=== PATIENT | female | born 1970 | race Caucasian/White ===

== ENCOUNTER 2017-11-01 11:53 | Emergency (ER) | payer MEDICAID ==
[2017-11-01] MEDS ORDERED: KETOROLAC TROMETHAMINE 60 MG/2 ML VIAL ONE (12:07)
== END 2017-11-01 13:09 | disposition home or self-care (01) ==
LOC: EDH 11:53
DX: S20.222A Contusion of left back wall of thorax, initial encounter (principal); S20.221A Contusion of right back wall of thorax, initial encounter; S30.0XXA Contusion of lower back and pelvis, initial encounter; I10 Essential (primary) hypertension; Z98.890 Other specified postprocedural states; Z72.0 Tobacco use; Y04.8XXA Assault by other bodily force, initial encounter; Y93.89 Activity, other specified; Y92.89 Other specified places as the place of occurrence of the external cause; Y99.8 Other external cause status
CPT/HCPCS: 72072; 72100; 96372; 99284; J1885

== ENCOUNTER 2018-06-30 14:15 | Emergency (ER) | payer MEDICAID, OTHER ==
[2018-06-30 15:17] LABS: EOSINOPHILS % (AUTO) 1.5 % (0.0-8.0); HEMATOCRIT 51.8 % (36-48); LYMPHOCYTES % (AUTO) 18.9 % (21.0-51.0); MEAN CORPUSCULAR HEMOGLOBIN 32.7 pg (27.0-33.0); MEAN CORPUSCULAR HGB CONC 33.3 g/dL (32.0-36.0); MEAN CORPUSCULAR VOLUME 98.3 fL (79-99); MONOCYTES % (AUTO) 4.8 % (3.0-13.0); NEUTROPHILS % (AUTO) 73.8 % (40.0-77.0); NUCLEATED RED BLOOD CELLS 0.1 % (0.0-0.19); PLATELET COUNT (AUTO) 212 K/uL (130-400); RED BLOOD CELL COUNT(AUTO) 5.27 MIL/uL (4.00-5.50); RED CELL DISTRIBUTION WIDTH 14.3 % (11.0-15.5); WHITE BLOOD COUNT (AUTO) 9.1 K/uL (4.8-10.8)
[2018-06-30 15:31] LABS: CREATININE 0.9 mg/dL (0.5-1.5); POTASSIUM 4.1 mmol/L (3.5-5.1)
[2018-06-30 15:32] LABS: INR 0.99 (0.85-1.15); PARTIAL THROMBOPLASTIN TIME 27.3 SEC (26.3-35.5); PROTHROMBIN TIME 10.4 SEC (9.6-11.6)
[2018-06-30 15:35] LABS: ALBUMIN 3.7 g/dL (3.5-5.0); TOTAL PROTEIN, SERUM 7.2 g/dL (6.0-8.3)
[2018-06-30 16:05] LABS: APPEARANCE,URINE CLEAR (CLEAR); BILIRUBIN,URINE MODERATE (NEGATIVE); COLOR,URINE YELLOW (YELLOW); GLUCOSE, URINE (UA) NEGATIVE (NEGATIVE); KETONES,URINE 15 mg/dL (NEGATIVE); LEUKOCYTE ESTERASE ,URINE NEGATIVE (NEGATIVE); NITRATE,URINE NEGATIVE (NEGATIVE); OCCULT BLOOD,URINE NEGATIVE (NEGATIVE); PROTEIN,URINE 30 (NEGATIVE); UROBILINOGEN,URINE 0.2 mg/dL (0.2-1.0)
[2018-06-30 16:12] LABS: AMORPHOUS SEDIMENT,UR Few /LPF (None Seen); BACTERIA,URINE Rare /HPF (None Seen); RBC,URINE 0-1 /HPF (0-1); SQUAMOUS EPITHELIAL CELL,UR Few /HPF (0-2); WBC,URINE 0-1 /HPF (0-1)
[2018-06-30 16:14] LABS: AMPHET/METH SCREEN,URINE NEGATIVE (NEGATIVE); BARBITURATE SCREEN, URINE NEGATIVE (NEGATIVE); BENZODIAZEPINES SCREEN,URINE NEGATIVE (NEGATIVE); CANNABINOID SCREEN,URINE POSITIVE (NEGATIVE); COCAINE SCREEN,URINE POSITIVE (NEGATIVE); OPIATE SCREEN,URINE NEGATIVE (NEGATIVE); PHENCYCLIDINE SCREEN,URINE NEGATIVE (NEGATIVE)
[2018-06-30] MEDS ORDERED: LABETALOL HCL 5 MG/ML 20ML VIAL IV ONE (17:18)
== END 2018-06-30 20:02 ==
LOC: EDH 14:15
DX: G45.9 Transient cerebral ischemic attack, unspecified (principal); I16.0 Hypertensive urgency; F12.10 Cannabis abuse, uncomplicated; F14.10 Cocaine abuse, uncomplicated; Z87.891 Personal history of nicotine dependence
CPT/HCPCS: 36415; 70450; 71045; 80053; 80305; 81001; 82550; 84484; 85025; 85610; 85730; 93005; 96374; 99285; J3490

== ENCOUNTER 2018-08-15 12:35 | Emergency (ER) | payer MEDICAID ==
[2018-08-15] MEDS ORDERED: CLONIDINE HCL 0.1 MG TABLET ONE (13:05)
[2018-08-15 13:17] LABS: CREATININE 0.9 mg/dL (0.5-1.5); POTASSIUM 4.5 mmol/L (3.5-5.1)
[2018-08-15 13:25] LABS: ALBUMIN 3.4 g/dL (3.5-5.0); BILIRUBIN,TOTAL 0.9 mg/dL (0.2-1.0); TOTAL PROTEIN, SERUM 8.3 g/dL (6.0-8.3)
[2018-08-15 13:27] LABS: INR 0.94 (0.85-1.15); PARTIAL THROMBOPLASTIN TIME 20.1 SEC (26.3-35.5); PROTHROMBIN TIME 9.9 SEC (9.6-11.6)
[2018-08-15] MEDS ORDERED: ACETAMINOPHEN 325 MG TAB ONE (14:03)
[2018-08-15 14:08] LABS: BASOPHILS % (AUTO) 0.5 % (0.0-5.0); EOSINOPHILS % (AUTO) 0.9 % (0.0-8.0); HEMATOCRIT 45.8 % (36-48); MEAN CORPUSCULAR HGB CONC 32.7 g/dL (32.0-36.0); MEAN CORPUSCULAR VOLUME 97.7 fL (79-99); MONOCYTES % (AUTO) 4.4 % (3.0-13.0); NEUTROPHILS % (AUTO) 78.2 % (40.0-77.0); NUCLEATED RED BLOOD CELLS 0.1 % (0.0-0.19); PLATELET COUNT (AUTO) 192 K/uL (130-400); RED BLOOD CELL COUNT(AUTO) 4.69 MIL/uL (4.00-5.50); RED CELL DISTRIBUTION WIDTH 15.2 % (11.0-15.5); WHITE BLOOD COUNT (AUTO) 12.7 K/uL (4.8-10.8)
== END 2018-08-15 15:45 | disposition home or self-care (01) ==
LOC: EDH 12:35
DX: R51 Headache (principal); R04.0 Epistaxis; I10 Essential (primary) hypertension; Z72.0 Tobacco use
CPT/HCPCS: 36415; 70450; 80053; 82550; 84484; 85025; 85610; 85730; 93005

== ENCOUNTER 2019-08-15 14:06 | Inpatient (IN) | payer MEDICAID, OTHER ==
[~2019-08-15] VITALS: Ht 157.5 cm; Wt 70.4 kg
[2019-08-15] MEDS ORDERED: LABETALOL 20 MG/4 ML DISP.SYRIN IV ONE (14:33)
[2019-08-15 15:02] LABS: BASOPHILS % (AUTO) 0.5 % (0.0-5.0); EOSINOPHILS % (AUTO) 0.2 % (0.0-8.0); HEMATOCRIT 45.4 % (36-48); LYMPHOCYTES % (AUTO) 5.3 % (21.0-51.0); MEAN CORPUSCULAR HEMOGLOBIN 34.5 pg (27.0-33.0); MEAN CORPUSCULAR HGB CONC 35.3 g/dL (32.0-36.0); MEAN CORPUSCULAR VOLUME 97.5 fL (79-99); MONOCYTES % (AUTO) 2.8 % (3.0-13.0); NEUTROPHILS % (AUTO) 91.2 % (40.0-77.0); PLATELET COUNT (AUTO) 104 K/uL (130-400); RED BLOOD CELL COUNT(AUTO) 4.65 MIL/uL (4.00-5.50); RED CELL DISTRIBUTION WIDTH 13.9 % (11.0-15.5); WHITE BLOOD COUNT (AUTO) 15.6 K/uL (4.8-10.8)
[2019-08-15 15:12] LABS: CREATININE 3.3 mg/dL (0.5-1.5); POTASSIUM 3.1 mmol/L (3.5-5.1)
[2019-08-15 15:27] LABS: APPEARANCE,URINE Cloudy (CLEAR); BILIRUBIN,URINE Negative (NEGATIVE); COLOR,URINE Yellow (YELLOW); GLUCOSE, URINE (UA) Negative (NEGATIVE); KETONES,URINE Negative (NEGATIVE); LEUKOCYTE ESTERASE ,URINE Negative (NEGATIVE); NITRATE,URINE Negative (NEGATIVE); OCCULT BLOOD,URINE Large (NEGATIVE); PROTEIN,URINE >=1000 mg/dL (NEGATIVE); UROBILINOGEN,URINE 0.2 mg/dL (0.2-1.0)
[2019-08-15 15:40] LABS: BACTERIA,URINE Moderate /HPF (None Seen); MUCUS,URINE Few LPF (None Seen)
[2019-08-15] MEDS ORDERED: ONDANSETRON HCL 4 MG/2 ML VIAL ONE (16:32)
[2019-08-15] MEDS ORDERED: HYDRALAZINE HCL 20 MG/ML VIAL ONE (16:32)
[2019-08-15] MEDS ORDERED: HYDRALAZINE HCL 25 MG TABLET PO SCH (17:30)
[2019-08-15] MEDS ORDERED: LEVOFLOXACIN 500 MG/D5W 100 ML 100 ML IV SCH (17:30)
[2019-08-15] MEDS: SODIUM CHLORIDE 0.9% 1000ML 1,000 ML IV SCH (17:45)
[2019-08-15] MEDS ORDERED: METOPROLOL TARTRATE 1 MG/ML 5ML VIAL IV PRN (17:45)
[2019-08-15] MEDS ORDERED: MORPHINE SULFATE 2 MG/ML 1ML SYG IVP PRN (17:45)
[2019-08-15] MEDS ORDERED: POTASSIUM CHLORIDE 20 MEQ ERTAB PO SCH (17:45)
[2019-08-15] MEDS: HEPARIN SODIUM 5000UNIT/ML 1ML VIAL SQ SCH (18:15)
[2019-08-15] MEDS ORDERED: POTASSIUM CHLORIDE 20 MEQ ERTAB PO ONE (18:30)
[2019-08-15] MEDS ORDERED: HYDRALAZINE HCL 25 MG TABLET ONE (18:30)
[2019-08-15] MEDS ORDERED: CEFTRIAXONE SODIUM 1 GM ONE (18:31)
[2019-08-15] MEDS ORDERED: SODIUM CHLORIDE 0.9% 1000ML 1,000 ML IV ONE (18:31)
[2019-08-15] MEDS ORDERED: SODIUM CHLORIDE 0.9% 50 ML IV ONE (18:32)
[2019-08-15] MEDS ORDERED: LEVOFLOXACIN 500 MG/D5W 100 ML 100 ML ONE (19:48)
[2019-08-15] MEDS: CEFTRIAXONE SODIUM 1 GM IVP SCH (20:00)
[2019-08-15] MEDS ORDERED: METOPROLOL TARTRATE 50 MG TAB PO SCH (21:00)
[2019-08-15] MEDS ORDERED: HEPARIN SODIUM 5000UNIT/ML 1ML VIAL SQ SCH (21:00)
[2019-08-15 21:06] VITALS: BP 199/128
[2019-08-15] MEDS: HYDRALAZINE HCL 25 MG TABLET PO SCH (22:21)
[2019-08-15] MEDS: HYDRALAZINE HCL 20 MG/ML VIAL IV PRN (22:42)
[2019-08-15] MEDS: ACETAMINOPHEN 325 MG TAB PO PRN (22:59)
[2019-08-16] VITALS (12 sets, daily range): BP systolic 114–198; BP diastolic 75–122
[2019-08-16] MEDS ORDERED: CLONIDINE HCL 0.1 MG TABLET PO PRN (00:15)
--- NOTE | 2019-08-16 00:15 | NUR ---
Princess Lopez loft worker head notified of elevated bp clonidine ordered
[2019-08-16] MEDS: ONDANSETRON HCL 4 MG/2 ML VIAL IV PRN ×4 (01:26→22:04)
--- NOTE | 2019-08-16 02:12 | NUR ---
bp 1191/117 Princess Lopez BOILER ENGINEER was notified, lopressor iv ordered, pt responsive with complaint of headache.
[2019-08-16] MEDS ORDERED: METOPROLOL TARTRATE 1 MG/ML 5ML VIAL IV PRN (02:15)
[2019-08-16 04:28] LABS: BASOPHILS % (AUTO) 0.6 % (0.0-5.0); HEMATOCRIT 37.3 % (36-48); LYMPHOCYTES % (AUTO) 11.1 % (21.0-51.0); MEAN CORPUSCULAR HEMOGLOBIN 33.9 pg (27.0-33.0); MEAN CORPUSCULAR HGB CONC 34.8 g/dL (32.0-36.0); MEAN CORPUSCULAR VOLUME 97.3 fL (79-99); MONOCYTES % (AUTO) 4.6 % (3.0-13.0); NEUTROPHILS % (AUTO) 82.7 % (40.0-77.0); PLATELET COUNT (AUTO) 105 K/uL (130-400); RED BLOOD CELL COUNT(AUTO) 3.83 MIL/uL (4.00-5.50); RED CELL DISTRIBUTION WIDTH 14.2 % (11.0-15.5); WHITE BLOOD COUNT (AUTO) 12.8 K/uL (4.8-10.8)
[2019-08-16] MEDS: HYDRALAZINE HCL 20 MG/ML VIAL IV PRN ×2 (04:46→11:44)
[2019-08-16 04:59] LABS: ALBUMIN 2.9 g/dL (3.5-5.0); BILIRUBIN,TOTAL 0.6 mg/dL (0.2-1.0); CREATININE 4.2 mg/dL (0.5-1.5); MAGNESIUM 2.2 mg/dL (1.80-2.40); PHOSPHORUS 4.4 mg/dL (2.5-4.9); TOTAL PROTEIN, SERUM 6.6 g/dL (6.0-8.3)
[2019-08-16 05:12] LABS: POTASSIUM 2.8 mmol/L (3.5-5.1)
[2019-08-16] MEDS ORDERED: POTASSIUM CHLORIDE 10% ELIXIR 20 MEQ/15 ML UDCUP PO PRN (06:00)
[2019-08-16] MEDS: POTASSIUM CHLORIDE 20MEQ/100ML 100 ML IV PRN (06:57)
[2019-08-16] MEDS: LIDOCAINE HCL-MPF 1% 2ML VIAL IV PRN (06:57)
[2019-08-16] MEDS: FOLIC ACID/VITAMIN B COMP W-C 1 MG CAP/TAB PO SCH (08:18)
[2019-08-16] MEDS: POTASSIUM CHLORIDE 20 MEQ ERTAB PO PRN (08:18)
[2019-08-16] MEDS: FAMOTIDINE 20MG TAB 20 MG TAB PO SCH (08:18)
[2019-08-16] MEDS: HYDRALAZINE HCL 25 MG TABLET PO SCH ×4 (08:18→20:16)
[2019-08-16] MEDS: HEPARIN SODIUM 5000UNIT/ML 1ML VIAL SQ SCH (08:21)
[2019-08-16] MEDS ORDERED: CHLORDIAZEPOXIDE HCL 25 MG CAP PO PRN (08:30)
[2019-08-16] MEDS ORDERED: ONDANSETRON HCL 4 MG/2 ML VIAL IV PRN (08:30)
[2019-08-16] MEDS ORDERED: PHARMACY COMMUNICATION MISC PRN (08:30)
[2019-08-16] MEDS ORDERED: THIAMINE HCL 100 MG/ML 2ML VIAL IM SCH (09:00)
[2019-08-16 09:18] LABS: AMPHET/METH SCREEN,URINE NEGATIVE (NEGATIVE); BARBITURATE SCREEN, URINE NEGATIVE (NEGATIVE); BENZODIAZEPINES SCREEN,URINE NEGATIVE (NEGATIVE); CANNABINOID SCREEN,URINE POSITIVE (NEGATIVE); COCAINE SCREEN,URINE NEGATIVE (NEGATIVE); OPIATE SCREEN,URINE NEGATIVE (NEGATIVE); PHENCYCLIDINE SCREEN,URINE NEGATIVE (NEGATIVE)
[2019-08-16] MEDS ORDERED: LABETALOL HCL 200 MG TABLET ONE (11:36)
[2019-08-16] MEDS: NICOTINE 21 MG/ 24 HR PATCH TD SCH (11:39)
[2019-08-16] MEDS: FOLIC ACID 1 MG TABLET PO SCH (11:40)
[2019-08-16] MEDS: MULTIVITAMIN TABLET PO SCH (11:40)
[2019-08-16] MEDS: LABETALOL HCL 200 MG TABLET PO SCH ×2 (11:45→20:15)
[2019-08-16] MEDS: THIAMINE HCL 100 MG/ML 2ML VIAL IVP SCH (12:26)
--- NOTE | 2019-08-16 13:00 | NUR ---
DR. SOLANO IN ROOM SPEAKING WITH PT. RE:PLAN OF CARE. QUESTIONS ANSWERED BY DR. SOLANO.
[2019-08-16] MEDS: SODIUM CHLORIDE 0.9% 1000ML 1,000 ML IV SCH (13:34)
[2019-08-16] MEDS ORDERED: LABETALOL HCL 200 MG TABLET PO SCH (14:00)
[2019-08-16] MEDS: ACETAMINOPHEN 325 MG TAB PO PRN (16:15)
--- NOTE | 2019-08-16 16:39 | NUR ---
DC PLAN VISITED WITH PATIENT. PATIENT LIVES WITH 2 DAUGHTERS AND GRANDCHILD. PATIENT HAS NO SERVICES DOES NOT WANT A PROVIDER. PATIENT HAS A [employer] AND WORKING ON PRIOR TO ADMISSION. PATIENT FEELS SAFE TO RETURN HOME. Addendum: 08/16/19 at 1641 by TJ KOWALSKI RN CM Amended: Links added. Addendum: 08/16/19 at 1712 by TJ KOWALSKI RN CM WRONG PATIENT
--- NOTE | 2019-08-16 17:13 | NUR ---
BRANDI PLAN PATIENT IN BATHROOM. PENDING IA. Addendum: 08/16/19 at 1715 by TJ KOWALSKI RN CM Amended: Links added.
[2019-08-16] MEDS ORDERED: SODIUM CHLORIDE 0.9% 10 ML VIAL ONE (20:02)
[2019-08-16] MEDS: CEFTRIAXONE SODIUM 1 GM IVP SCH (20:14)
[2019-08-16] MEDS: ACETAMINOPHEN-CODEINE 300/30MG TAB PO PRN (22:05)
[2019-08-17] VITALS (8 sets, daily range): BP systolic 125–185; BP diastolic 69–115
[2019-08-17] MEDS: LABETALOL HCL 200 MG TABLET PO SCH ×3 (03:20→20:33)
[2019-08-17 03:59] LABS: BASOPHILS % (AUTO) 0.7 % (0.0-5.0); EOSINOPHILS % (AUTO) 1.3 % (0.0-8.0); HEMATOCRIT 33.5 % (36-48); LYMPHOCYTES % (AUTO) 16.4 % (21.0-51.0); MEAN CORPUSCULAR HEMOGLOBIN 34.9 pg (27.0-33.0); MEAN CORPUSCULAR HGB CONC 34.9 g/dL (32.0-36.0); MEAN CORPUSCULAR VOLUME 99.9 fL (79-99); MONOCYTES % (AUTO) 6.2 % (3.0-13.0); NEUTROPHILS % (AUTO) 75.4 % (40.0-77.0); PLATELET COUNT (AUTO) 87 K/uL (130-400); RED BLOOD CELL COUNT(AUTO) 3.35 MIL/uL (4.00-5.50); RED CELL DISTRIBUTION WIDTH 14.7 % (11.0-15.5); WHITE BLOOD COUNT (AUTO) 9.4 K/uL (4.8-10.8)
[2019-08-17 04:28] LABS: ALBUMIN 2.8 g/dL (3.5-5.0); BILIRUBIN,TOTAL 0.5 mg/dL (0.2-1.0); CREATININE 4.6 mg/dL (0.5-1.5); POTASSIUM 3.6 mmol/L (3.5-5.1); TOTAL PROTEIN, SERUM 6.2 g/dL (6.0-8.3)
[2019-08-17] MEDS ORDERED: THIAMINE HCL 100 MG/ML 2ML VIAL IVP SCH (09:00)
[2019-08-17] MEDS: HEPARIN SODIUM 5000UNIT/ML 1ML VIAL SQ SCH (09:00)
[2019-08-17] MEDS ORDERED: AMLODIPINE BESYLATE 5 MG TAB PO SCH (09:00)
--- NOTE | 2019-08-17 10:00 | NUR ---
DCP CM met with pt discussed dc plans. Pt is independent prior to admission, lives at home alone, daughter lives close by. Denies any equipments/services. Feels safe to go back home, still drives, daughter able to assist with transportation and needs as necessary. DC plan to home once stable. CM to cont to follow up. Addendum: 08/17/19 at 1357 by ADRIÁN MOSELEY LVN CM Amended: Links added.
[2019-08-17] MEDS: THIAMINE HCL 100 MG/ML 2ML VIAL IVP SCH (10:16)
[2019-08-17] MEDS: FOLIC ACID 1 MG TABLET PO SCH (10:16)
[2019-08-17] MEDS: NICOTINE 21 MG/ 24 HR PATCH TD SCH (10:17)
[2019-08-17] MEDS: MULTIVITAMIN TABLET PO SCH (10:17)
[2019-08-17] MEDS: FOLIC ACID/VITAMIN B COMP W-C 1 MG CAP/TAB PO SCH (10:17)
[2019-08-17] MEDS: FAMOTIDINE 20MG TAB 20 MG TAB PO SCH (10:17)
[2019-08-17] MEDS: HYDRALAZINE HCL 25 MG TABLET PO SCH (10:20)
[2019-08-17] MEDS: AMLODIPINE BESYLATE 5 MG TAB PO SCH ×2 (10:30→20:30)
[2019-08-17] MEDS ORDERED: AMLO5TAB4 PO (10:33)
[2019-08-17] MEDS ORDERED: Folic Acid/Vitamin B Comp W-C PO (10:33)
[2019-08-17] MEDS ORDERED: DOCUSATE SODIUM 100 MG CAP PO SCH (12:30)
[2019-08-17] MEDS: POLYETHYLENE GLYCOL 3350 17 GM POWD.PACK PO SCH (13:25)
[2019-08-17] MEDS ORDERED: LEVOFLOXACIN 250 MG/D5W 50ML 50 ML IV SCH (18:00)
--- NOTE | 2019-08-17 20:00 | NUR ---
PM NOTE PATIENT RESTING IN BED, STATES FEELING NAUSEATED WITH A HEADACHE. NO IV ON PATIENT. PATIENT GETTING UP TO SHOWER. FAMLIY AT BEDSIDE. PATIENT ALERT & ORIENTED X3. UPON CALLING TELEMETRY, [employer] HARVESTING SUPERVISOR STATED PATIENT WAS NOT ON TELEMETRY. THIS HAD NOT BEEN REPORTED DURING CHANGE OF SHIFT REPORT. UPON ASKING PATIENT, SHE STATED THE NURSE HAD TOOK OFF THE TELEMETRY DUE TO DOCTOR'S ORDERS. PATIENT UNSURE OF REASON. WILL CHECK NURSES AND PHYSICIANS NOTES TO VERIFY REASON OF WHY TELEMETRY WAS DISCONTINUED. NO ORDERS SEEN CURRENTLY OF DISCONTINUATION. IV ATTEMPTED BY SEVERAL NURSING STAFF WITHOUT SUCCESS. WILL RETRY AGAIN LATER, WILL LET PATIENT REST FOR NOW. CALL LIGHT WITHIN REACH. INSTRUCTED TO CALL FOR ASSISTANCE IF NEEDED, VERBALIZED UNDERSTANDING.
[2019-08-17] MEDS: ACETAMINOPHEN 325 MG TAB PO PRN (20:31)
[2019-08-18] MEDS ORDERED: PROMETHAZINE HCL 25 MG/ML 1ML AMPULE IM SCH (01:15)
--- NOTE | 2019-08-18 02:00 | NUR ---
TELEMETRY UPON READING NOTES FROM YESTERDAY, NO REASON FOUND TO WHY TELEMETRY DISCONTINUED. WHILE SPEAKING TO GASTROENTEROLOGY NURSE, SHE MENTIONED THEY HAD THE PATIENT DISCHARGED. RE-VERIFICATION OF ORDERS AND NOTES WERE DONE TO DETERMINE IF THERE HAD BEEN A REASON TO DISCONTINUE TELEMETRY THAT HAD NOT BEEN DISCUSSED DURING REPORT. DECIDED TO PLACE TELEMETRY BACK ON PATIENT SINCE NO ORDERS OR NOTES INDICATED OTHERWISE. ONCE BACK ON TELEMETRY, RHYTHM WAS SINUS RHYTHM AT 80. WILL CONTINUE MONITORING.
[2019-08-18 04:10] VITALS: BP 168/99
[2019-08-18] MEDS: CEFTRIAXONE SODIUM 1 GM IVP SCH (04:49)
[2019-08-18] MEDS: ONDANSETRON HCL 4 MG/2 ML VIAL IV PRN (04:49)
[2019-08-18 05:03] LABS: BASOPHILS % (AUTO) 0.8 % (0.0-5.0); EOSINOPHILS % (AUTO) 1.4 % (0.0-8.0); HEMATOCRIT 31.7 % (36-48); LYMPHOCYTES % (AUTO) 17.6 % (21.0-51.0); MEAN CORPUSCULAR HEMOGLOBIN 34.6 pg (27.0-33.0); MEAN CORPUSCULAR HGB CONC 34.9 g/dL (32.0-36.0); MEAN CORPUSCULAR VOLUME 98.9 fL (79-99); MONOCYTES % (AUTO) 5.3 % (3.0-13.0); NEUTROPHILS % (AUTO) 74.9 % (40.0-77.0); PLATELET COUNT (AUTO) 100 K/uL (130-400); RED CELL DISTRIBUTION WIDTH 14.5 % (11.0-15.5); WHITE BLOOD COUNT (AUTO) 9.8 K/uL (4.8-10.8)
[2019-08-18 05:31] LABS: ALBUMIN 3.1 g/dL (3.5-5.0); BILIRUBIN,TOTAL 0.6 mg/dL (0.2-1.0); CREATININE 5.3 mg/dL (0.5-1.5); POTASSIUM 3.1 mmol/L (3.5-5.1); TOTAL PROTEIN, SERUM 6.5 g/dL (6.0-8.3)
[2019-08-18] MEDS ORDERED: PROMETHAZINE HCL 25 MG/ML 1ML AMPULE IM PRN (06:45)
[2019-08-18 07:57] VITALS: BP 174/97
[2019-08-18] MEDS ORDERED: POLYETHYLENE GLYCOL 3350 17 GM POWD.PACK PO SCH (09:00)
[2019-08-18] MEDS ORDERED: HYDRALAZINE HCL 25 MG TABLET PO SCH (09:00)
[2019-08-18] MEDS: THIAMINE HCL 100 MG/ML 2ML VIAL IVP SCH (09:35)
[2019-08-18] MEDS: MULTIVITAMIN TABLET PO SCH (09:36)
[2019-08-18] MEDS: FOLIC ACID 1 MG TABLET PO SCH (09:36)
[2019-08-18] MEDS: FAMOTIDINE 20MG TAB 20 MG TAB PO SCH (09:36)
[2019-08-18] MEDS: LABETALOL HCL 200 MG TABLET PO SCH ×2 (09:37→19:54)
[2019-08-18] MEDS: NICOTINE 21 MG/ 24 HR PATCH TD SCH (09:38)
[2019-08-18] MEDS: AMLODIPINE BESYLATE 5 MG TAB PO SCH ×2 (09:39→19:54)
[2019-08-18] MEDS: POLYETHYLENE GLYCOL 3350 17 GM POWD.PACK PO SCH (09:39)
[2019-08-18] MEDS: ACETAMINOPHEN-CODEINE 300/30MG TAB PO PRN (09:39)
[2019-08-18] MEDS: FOLIC ACID/VITAMIN B COMP W-C 1 MG CAP/TAB PO SCH (09:46)
[2019-08-18 11:48] VITALS: BP 161/96
[2019-08-18] MEDS: ONDANSETRON 4 MG TABLET PO PRN (13:15)
[2019-08-18] MEDS ORDERED: CLONAZEPAM 1 MG TABLET PO ONE (14:00)
[2019-08-18] MEDS ORDERED: POTASSIUM CHLORIDE 20 MEQ ERTAB PO SCH (14:15)
[2019-08-18] MEDS: SODIUM CHLORIDE 0.9% 1000ML 1,000 ML IV SCH (14:43)
[2019-08-18] MEDS: ONDANSETRON HCL 4 MG/2 ML VIAL IVP PRN (14:44)
[2019-08-18] MEDS: POTASSIUM CHLORIDE 20MEQ/100ML 100 ML IV PRN (14:46)
[2019-08-18] MEDS: LIDOCAINE HCL-MPF 1% 2ML VIAL IV PRN (14:46)
[2019-08-18 16:00] VITALS: BP 162/93
[2019-08-18 19:54] VITALS: BP 181/105
[2019-08-18] MEDS: HYDRALAZINE HCL 25 MG TABLET PO SCH (19:54)
[2019-08-18 21:17] LABS: CREATININE,SERUM FOR CRCL 5.3 mg/dL (0.6-1.3)
[2019-08-18 23:52] VITALS: BP 149/99
[2019-08-19] MEDS: ONDANSETRON HCL 4 MG/2 ML VIAL IVP PRN ×2 (01:53→08:39)
[2019-08-19] MEDS: ACETAMINOPHEN 325 MG TAB PO PRN (03:33)
[2019-08-19 04:00] VITALS: BP 160/100
[2019-08-19 04:25] LABS: MEAN CORPUSCULAR HEMOGLOBIN 35.2 pg (27.0-33.0); MEAN CORPUSCULAR VOLUME 100.5 fL (79-99); NUCLEATED RED BLOOD CELLS 0.1 % (0.0-0.19); PLATELET COUNT (AUTO) 90 K/uL (130-400); RED BLOOD CELL COUNT(AUTO) 3.08 MIL/uL (4.00-5.50); RED CELL DISTRIBUTION WIDTH 14.3 % (11.0-15.5); WHITE BLOOD COUNT (AUTO) 11.1 K/uL (4.8-10.8)
[2019-08-19 04:28] LABS: ALBUMIN 3.1 g/dL (3.5-5.0); BILIRUBIN,TOTAL 0.6 mg/dL (0.2-1.0); CREATININE 5.2 mg/dL (0.5-1.5); MAGNESIUM 2.3 mg/dL (1.80-2.40); POTASSIUM 3.2 mmol/L (3.5-5.1); TOTAL PROTEIN, SERUM 6.3 g/dL (6.0-8.3)
[2019-08-19 04:44] LABS: EOSINOPHILS % (MANUAL) 2 % (1-6); LYMPHOCYTES % (MANUAL) 11 % (22-44); MAN.DIFF COMMENT-IMPRESSION MANUAL DIFFERENTIAL; MONOCYTES % (MANUAL) 7 % (2-9); SEGMENTED NEUTROPHILS % 80 % (40-70)
[2019-08-19] MEDS: POTASSIUM CHLORIDE 20 MEQ ERTAB PO PRN (05:05)
[2019-08-19 07:09] LABS: HEPATITIS A ANTIBODY IGM Negative (Negative); HEPATITIS B CORE IGM Negative (Negative); HEPATITIS Bs ANTIGEN SCREEN P Negative (Negative)
[2019-08-19 07:15] VITALS: BP 161/87
[2019-08-19] MEDS: POLYETHYLENE GLYCOL 3350 17 GM POWD.PACK PO SCH (08:38)
[2019-08-19] MEDS: NICOTINE 21 MG/ 24 HR PATCH TD SCH (08:39)
[2019-08-19] MEDS: FAMOTIDINE 20MG TAB 20 MG TAB PO SCH (08:40)
[2019-08-19] MEDS: LABETALOL HCL 200 MG TABLET PO SCH ×2 (08:40→21:49)
[2019-08-19] MEDS: AMLODIPINE BESYLATE 5 MG TAB PO SCH ×2 (08:40→21:50)
[2019-08-19] MEDS: MULTIVITAMIN TABLET PO SCH (08:40)
[2019-08-19] MEDS: FOLIC ACID/VITAMIN B COMP W-C 1 MG CAP/TAB PO SCH (08:40)
[2019-08-19] MEDS: HYDRALAZINE HCL 25 MG TABLET PO SCH ×2 (08:41→21:49)
[2019-08-19] MEDS: SODIUM CHLORIDE 0.9% 1000ML 1,000 ML IV SCH (08:43)
[2019-08-19 11:25] VITALS: BP 123/76
[2019-08-19] MEDS: MINOXIDIL 2.5 MG TAB PO SCH ×2 (14:31→21:50)
[2019-08-19 15:18] VITALS: BP 163/86
[2019-08-19] MEDS: LORAZEPAM 2 MG/ML 1 ML VIAL IVP PRN (16:01)
--- NOTE | 2019-08-19 17:25 | NUR ---
MRI REPORT ABNORMAL MRI BRAIN REPORT CALLED IN TO DR BONILLA. SEE EMR FOR ORDERS.
[2019-08-19] MEDS ORDERED: ASPIRIN 81MG TAB.CHEW PO SCH (17:30)
--- NOTE | 2019-08-19 19:00 | NUR ---
Assumed care at 1900. Patient in no apparent distress, however patient appears to be a bit agitated and anxious. Will continue to monitor.
[2019-08-19 20:05] VITALS: BP 174/107
[2019-08-19] MEDS: ATORVASTATIN CALCIUM 20 MG TABLET PO SCH (21:50)
[2019-08-20] VITALS (7 sets, daily range): BP systolic 108–142; BP diastolic 64–92
[2019-08-20 04:16] LABS: HEMATOCRIT 28.4 % (36-48); MEAN CORPUSCULAR HEMOGLOBIN 34.4 pg (27.0-33.0); MEAN CORPUSCULAR HGB CONC 34.5 g/dL (32.0-36.0); MEAN CORPUSCULAR VOLUME 99.8 fL (79-99); PLATELET COUNT (AUTO) 117 K/uL (130-400); RED BLOOD CELL COUNT(AUTO) 2.85 MIL/uL (4.00-5.50); RED CELL DISTRIBUTION WIDTH 14.6 % (11.0-15.5); WHITE BLOOD COUNT (AUTO) 6.8 K/uL (4.8-10.8)
[2019-08-20 04:20] LABS: INR 0.95 (0.85-1.15); PARTIAL THROMBOPLASTIN TIME 25.2 SEC (26.3-35.5)
[2019-08-20 04:22] LABS: CREATININE 5.6 mg/dL (0.5-1.5); POTASSIUM 3.7 mmol/L (3.5-5.1)
[2019-08-20 04:36] LABS: BASOPHILS % (MANUAL) 1 % (0-2); EOSINOPHILS % (MANUAL) 1 % (1-6); LYMPHOCYTES % (MANUAL) 18 % (22-44); MONOCYTES % (MANUAL) 4 % (2-9); SEGMENTED NEUTROPHILS % 76 % (40-70)
[2019-08-20 04:37] LABS: MAN.DIFF COMMENT-IMPRESSION MANUAL DIFFERENTIAL
[2019-08-20] MEDS: MULTIVITAMIN TABLET PO SCH (10:11)
[2019-08-20] MEDS: MINOXIDIL 2.5 MG TAB PO SCH ×2 (10:11→21:12)
[2019-08-20] MEDS: FOLIC ACID/VITAMIN B COMP W-C 1 MG CAP/TAB PO SCH (10:11)
[2019-08-20] MEDS: LABETALOL HCL 200 MG TABLET PO SCH ×2 (10:11→21:11)
[2019-08-20] MEDS: AMLODIPINE BESYLATE 5 MG TAB PO SCH ×2 (10:12→21:12)
[2019-08-20] MEDS: FAMOTIDINE 20MG TAB 20 MG TAB PO SCH (10:12)
[2019-08-20] MEDS: HYDRALAZINE HCL 25 MG TABLET PO SCH ×2 (10:12→21:11)
[2019-08-20] MEDS: ASPIRIN 81MG TAB.CHEW PO SCH (10:12)
[2019-08-20] MEDS: NICOTINE 21 MG/ 24 HR PATCH TD SCH (10:13)
[2019-08-20] MEDS: POLYETHYLENE GLYCOL 3350 17 GM POWD.PACK PO SCH (10:18)
[2019-08-20] MEDS: LORAZEPAM 2 MG/ML 1 ML VIAL IVP PRN (11:25)
--- NOTE | 2019-08-20 12:10 | NUR ---
DYSPHAGIA EVAL COMPLETED. -S/S OF ASPIRATION. RECOMMEND REGULAR TEXTURE, THIN LIQUIDS; PILLS WHOLE WITH LIQUIDS. Addendum: 08/20/19 at 1211 by STELLA PICKETT, [facility] Amended: Links added.
--- NOTE | 2019-08-20 12:22 | NUR ---
RDSCREEN - LOS X 5 Pt admitted for headache, UTI, uncontrolled HTN, medical Hx of CKD IV, medical noncompliance. Pending MRI results. Pt tolerating Renal Non Dialysis, Heart Healthy diet order. Upon visit, Pt reports nausea and vomiting with medications. Pt was able to eat 75% breakfast and looking forward to lunch. Recommend to add Ensure QD, per pt request. Pt LBM 08/19/19. Pt monitored labs: BUN 47, Cr 5.6, GFR 9, Ca 8.3, Alb 3.1. RD to continue to monitor. Please notify RD as additional nutrition concerns arise. Thank you. Addendum: 08/20/19 at [address] Amended: Links added.
[2019-08-20] MEDS: ACETAMINOPHEN-CODEINE 300/30MG TAB PO PRN (15:11)
[2019-08-20] MEDS: ATORVASTATIN CALCIUM 20 MG TABLET PO SCH (21:12)
[2019-08-20] MEDS: ACETAMINOPHEN 325 MG TAB PO PRN (21:21)
[2019-08-21 04:06] VITALS: BP 123/74
[2019-08-21 04:37] LABS: HEMATOCRIT 30.3 % (36-48); MEAN CORPUSCULAR HEMOGLOBIN 35.3 pg (27.0-33.0); MEAN CORPUSCULAR VOLUME 100.9 fL (79-99); PLATELET COUNT (AUTO) 122 K/uL (130-400); RED BLOOD CELL COUNT(AUTO) 3.01 MIL/uL (4.00-5.50); RED CELL DISTRIBUTION WIDTH 14.4 % (11.0-15.5); WHITE BLOOD COUNT (AUTO) 7.2 K/uL (4.8-10.8)
[2019-08-21 05:02] LABS: HEMOGLOBIN A1C 4.7 % (4.0-6.0)
[2019-08-21 05:05] LABS: CARBON DIOXIDE 21 mmol/L (21-32); CHLORIDE 101 mmol/L (101-111); CHOLESTEROL 117 mg/dL (<200); CREATININE 5.5 mg/dL (0.5-1.5); GLOMERULAR FILTR. RATE CALC 9 mL/min (>60); GLUCOSE,RANDOM 91 mg/dL (70-105); HDL CHOLESTEROL 51 mg/dL (35-85); LDL DIRECT 53 mg/dL (0-99); PHOSPHORUS 5.9 mg/dL (2.5-4.9); POTASSIUM 3.8 mmol/L (3.5-5.1); SODIUM SERUM 136 mmol/L (136-145); TRIGLYCERIDES 100 mg/dL (30-200); UREA NITROGEN, BLOOD 43 mg/dL (7-18)
[2019-08-21 07:56] VITALS: BP 130/85
[2019-08-21] MEDS: POLYETHYLENE GLYCOL 3350 17 GM POWD.PACK PO SCH (09:00)
[2019-08-21] MEDS: AMLODIPINE BESYLATE 5 MG TAB PO SCH ×2 (09:10→20:18)
[2019-08-21] MEDS: HYDRALAZINE HCL 25 MG TABLET PO SCH ×2 (09:12→20:19)
[2019-08-21] MEDS: FOLIC ACID/VITAMIN B COMP W-C 1 MG CAP/TAB PO SCH (09:12)
[2019-08-21] MEDS: MINOXIDIL 2.5 MG TAB PO SCH ×2 (09:12→20:19)
[2019-08-21] MEDS: MULTIVITAMIN TABLET PO SCH (09:12)
[2019-08-21] MEDS: ASPIRIN 81MG TAB.CHEW PO SCH (09:12)
[2019-08-21] MEDS: LABETALOL HCL 200 MG TABLET PO SCH ×2 (09:13→20:17)
[2019-08-21] MEDS: NICOTINE 21 MG/ 24 HR PATCH TD SCH (09:13)
[2019-08-21] MEDS: FAMOTIDINE 20MG TAB 20 MG TAB PO SCH (09:14)
[2019-08-21] MEDS: ACETAMINOPHEN-CODEINE 300/30MG TAB PO PRN (09:20)
--- NOTE | 2019-08-21 10:47 | NUR ---
DC PLAN SPOKE TO PATIENT STILL UPSET. LET FIRE CLAIMS ADJUSTER KNOW WELL. PATIENT SIGNED POA YESTERDAY. [facility] HAS BEEN TRYING TO HELP HER BUT BEING DELAYED BY PATIENT. DC PLAN STILL TO DC HOME PENDING MRI. Addendum: 08/21/19 at 1050 by TJ KOWALSKI RN CM Amended: Links added.
[2019-08-21] MEDS: LORAZEPAM 2 MG/ML 1 ML VIAL IVP PRN (11:51)
[2019-08-21 11:58] VITALS: BP 107/69
[2019-08-21 15:33] VITALS: BP 122/73
[2019-08-21] MEDS ORDERED: HYDROXYZINE HCL 25 MG TABLET PO PRN (16:00)
--- NOTE | 2019-08-21 18:30 | NUR ---
TELEMETRY PT REFUSING BOWLING BALL PATCHER. EXPLAINED TO PT PURPOSE OF BOWLING BALL PATCHER. PT CONTINUED TO REFUSE BOWLING BALL PATCHER. REFUSAL FORM EXPLAINED TO PT. REFUSAL FORM BOWLING BALL PATCHER SIGNED BY PT.
[2019-08-21 19:22] VITALS: BP 125/84
[2019-08-21] MEDS: ATORVASTATIN CALCIUM 20 MG TABLET PO SCH (20:18)
[2019-08-21 23:34] VITALS: BP 109/68
[2019-08-22 03:39] VITALS: BP 123/75
[2019-08-22 07:55] VITALS: BP 135/81
[2019-08-22] MEDS: MULTIVITAMIN TABLET PO SCH (09:45)
[2019-08-22] MEDS: FAMOTIDINE 20MG TAB 20 MG TAB PO SCH (09:46)
[2019-08-22] MEDS: ASPIRIN 81MG TAB.CHEW PO SCH (09:46)
[2019-08-22] MEDS: MINOXIDIL 2.5 MG TAB PO SCH ×2 (09:46→22:15)
[2019-08-22] MEDS: LABETALOL HCL 200 MG TABLET PO SCH ×2 (09:47→22:14)
[2019-08-22] MEDS: POLYETHYLENE GLYCOL 3350 17 GM POWD.PACK PO SCH (09:47)
[2019-08-22] MEDS: HYDRALAZINE HCL 25 MG TABLET PO SCH ×2 (09:47→22:16)
[2019-08-22] MEDS: AMLODIPINE BESYLATE 5 MG TAB PO SCH ×2 (09:47→22:15)
[2019-08-22] MEDS: NICOTINE 21 MG/ 24 HR PATCH TD SCH (09:48)
[2019-08-22] MEDS: FOLIC ACID/VITAMIN B COMP W-C 1 MG CAP/TAB PO SCH (09:51)
[2019-08-22 11:24] VITALS: BP 99/65
[2019-08-22] MEDS: FLUOXETINE HCL 20 MG CAPSULE PO SCH (12:55)
[2019-08-22 15:25] VITALS: BP_SYST 105; BP_SYST 131; BP_DIAS 63; BP_DIAS 80
[2019-08-22 19:38] VITALS: BP 116/69
--- NOTE | 2019-08-22 22:00 | NUR ---
ASSESSMENT PT RESTING IN BED. CALLBELL REVIEWED AND WITHIN REACH. DENIES ANY CHEST PAIN OR S.O.B. ASSESSMENT COMPLETED, SEE FLOW SHEET. C/O BLURRY VISION. C/O H/A.
[2019-08-22] MEDS: ATORVASTATIN CALCIUM 20 MG TABLET PO SCH (22:14)
[2019-08-22 23:49] VITALS: BP 99/55
[2019-08-23] MEDS: ACETAMINOPHEN EXTRA STRENGTH 500 MG TABLET PO PRN ×2 (00:56→22:53)
[2019-08-23 03:25] LABS: HEMATOCRIT 29.2 % (36-48); MEAN CORPUSCULAR HEMOGLOBIN 34.7 pg (27.0-33.0); MEAN CORPUSCULAR HGB CONC 34.2 g/dL (32.0-36.0); MEAN CORPUSCULAR VOLUME 101.5 fL (79-99); PLATELET COUNT (AUTO) 180 K/uL (130-400); RED BLOOD CELL COUNT(AUTO) 2.88 MIL/uL (4.00-5.50); RED CELL DISTRIBUTION WIDTH 14.3 % (11.0-15.5); WHITE BLOOD COUNT (AUTO) 7.2 K/uL (4.8-10.8)
[2019-08-23 03:41] LABS: CREATININE 6.3 mg/dL (0.5-1.5); POTASSIUM 4.2 mmol/L (3.5-5.1)
[2019-08-23 04:04] VITALS: BP 109/68
[2019-08-23 08:01] VITALS: BP 132/89
[2019-08-23] MEDS ORDERED: FLUOXETINE HCL 20 MG CAPSULE PO SCH (09:00)
[2019-08-23] MEDS: ASPIRIN 81MG TAB.CHEW PO SCH (09:41)
[2019-08-23] MEDS: FOLIC ACID/VITAMIN B COMP W-C 1 MG CAP/TAB PO SCH (09:41)
[2019-08-23] MEDS: AMLODIPINE BESYLATE 5 MG TAB PO SCH ×2 (09:41→20:44)
[2019-08-23] MEDS: MINOXIDIL 2.5 MG TAB PO SCH ×2 (09:42→20:44)
[2019-08-23] MEDS: FLUOXETINE HCL 20 MG CAPSULE PO SCH (09:42)
[2019-08-23] MEDS: MULTIVITAMIN TABLET PO SCH (09:42)
[2019-08-23] MEDS: FAMOTIDINE 20MG TAB 20 MG TAB PO SCH (09:42)
[2019-08-23] MEDS: HYDRALAZINE HCL 25 MG TABLET PO SCH ×2 (09:42→20:44)
[2019-08-23] MEDS: NICOTINE 21 MG/ 24 HR PATCH TD SCH (09:43)
[2019-08-23] MEDS: LABETALOL HCL 200 MG TABLET PO SCH ×2 (09:43→20:45)
[2019-08-23] MEDS: POLYETHYLENE GLYCOL 3350 17 GM POWD.PACK PO SCH (09:43)
[2019-08-23 11:44] VITALS: BP 129/82
[2019-08-23 15:30] VITALS: BP 134/80
[2019-08-23] MEDS: ACETAMINOPHEN 325 MG TAB PO PRN (18:39)
[2019-08-23 19:00] VITALS: BP 117/67
--- NOTE | 2019-08-23 19:15 | NUR ---
ASSESSMENT PT RESTING IN BED. CALLBELL REVIEWED AND WITHIN REACH. DENIES ANY CHEST PAIN OR S.O.B. ASSESSMENT COMPLETED, SEE FLOW SHEET. PT C/O BLURRY VISION AND HEADACHES. SEE KEL FOR TYLENOL GIVEN.
[2019-08-23] MEDS: ATORVASTATIN CALCIUM 20 MG TABLET PO SCH (20:44)
[2019-08-23] MEDS: ONDANSETRON 4 MG TABLET PO PRN (20:44)
[2019-08-23 23:00] VITALS: BP 106/67
--- NOTE | 2019-08-24 | NUR ---
VISION DAUGHTER AT BEDSIDE. DAUGHTER STATES "MY MOM CAN'T SEE". PT STATES "I FEEL WEIRD". PT ENCOURAGED TO EXPRESS FEELINGS. PT STATED "I JUST FEEL WEIRD." SEE FOR BLOOD SUGAR. KATARINA. SEE NEURO ASSESSMENT. WILL CONTINUE TO MONITOR
--- NOTE | 2019-08-24 02:00 | NUR ---
UP-DATE SEE NEURO ASSESSMENT, PERRLA. WILL CONTINUE TO MONITOR. PT RESTING INTERMITTENTLY.
[2019-08-24 03:00] VITALS: BP 100/58
[2019-08-24] MEDS: ACETAMINOPHEN EXTRA STRENGTH 500 MG TABLET PO PRN (07:09)
--- NOTE | 2019-08-24 07:30 | NUR ---
ASSESSMENT ENCOUNTERED PT A&OX3, CALM COOPERATIVE AND DOES NOT APPEAR TO BE IN ANY DISTRESS NOR ANY NEURO DEFICITS PRESENT. PT DENIES PAIN, SOB, NAUSEA. STERNAL AND CHEST TUBE INCISION SITES DRY AND INTACT. INCENTIVE SPIROMETRY AVERAGING 750ML PER ATTEMPT. ENCOURAGED PT TO INCREASE FREQUENCY TO EVERY 1/2 HOUR AND THAT GOAL FOR PATIENT IS TO REACH 1500ML BY DISCHARGE. PT IS AMBULATORY, GAIT SLOW AND UNSTEADY WITH ASSIST. CALL LIGHT WITHIN REACH, FAMILY AT BEDSIDE. Addendum: 08/26/19 at 1826 by ALONDRA MOSELEY RN RN ERROR, INCORRECT PATIENT
[2019-08-24 07:43] VITALS: BP 120/70
--- NOTE | 2019-08-24 08:00 | NUR ---
ASSESSMENT ENCOUNTERED PT ASLEEP BUT AROUSEABLE, A&OX3, FLAT AFFECT, CALM COOPERATIVE AND DOES NOT APPEAR TO BE IN ANY DISTRESS. PT DENIES PAIN, SOB, NAUSEA, DIZZINESS BUT DOES C/O INTERMITTENT IMPAIRED VISION AND DEPTH PERCEPTION. PT IS AMBULATORY, GAIT SLOW BUT STEADY WITH STAND BY ASSIST. PT IS ABLE TO TOLERATE FOODS, FLUIDS AND MEDICATION WITH NO THROAT CLEARING OR COUGH. CALL LIGHT WITHIN REACH, FAMILY AT BEDSIDE.
[2019-08-24] MEDS: FAMOTIDINE 20MG TAB 20 MG TAB PO SCH (10:29)
[2019-08-24] MEDS: NICOTINE 21 MG/ 24 HR PATCH TD SCH (10:29)
[2019-08-24] MEDS: MINOXIDIL 2.5 MG TAB PO SCH (10:29)
[2019-08-24] MEDS: FLUOXETINE HCL 20 MG CAPSULE PO SCH (10:30)
[2019-08-24] MEDS: ASPIRIN 81MG TAB.CHEW PO SCH (10:30)
[2019-08-24] MEDS: POLYETHYLENE GLYCOL 3350 17 GM POWD.PACK PO SCH (10:30)
[2019-08-24] MEDS: FOLIC ACID/VITAMIN B COMP W-C 1 MG CAP/TAB PO SCH (10:30)
[2019-08-24] MEDS: HYDRALAZINE HCL 25 MG TABLET PO SCH (10:30)
[2019-08-24] MEDS: AMLODIPINE BESYLATE 5 MG TAB PO SCH (10:34)
[2019-08-24] MEDS: MULTIVITAMIN TABLET PO SCH (10:34)
[2019-08-24] MEDS: LABETALOL HCL 200 MG TABLET PO SCH (10:34)
[2019-08-24 11:22] VITALS: BP 124/81
[2019-08-24] MEDS ORDERED: FLUO-126 PO (13:36)
[2019-08-24] MEDS ORDERED: ATOR20TA65 PO (13:36)
[2019-08-24] MEDS ORDERED: LABE200T5 PO (13:36)
[2019-08-24] MEDS ORDERED: HYDR-3421 PO (13:36)
[2019-08-24] MEDS ORDERED: HYDR25 PO (13:36)
[2019-08-24] MEDS ORDERED: AEC81 PO (13:38)
[2019-08-24] MEDS ORDERED: CLOP75TA32 PO (13:38)
--- NOTE | 2019-08-24 16:00 | NUR ---
DISCHARGE INSTRUCTIONS GIVEN, PIV REMOVED AND INTACT, DISCHARGED HOME TO FAMILY VEHICLE VIA WHEELCHAIR.
== END 2019-08-24 15:49 | disposition home or self-care (01) | DRG 682 ==
LOC: EDH 14:06 → EDHIP 14:07 → 2AH 20:38
PROVIDERS: ADMIT Family Medicine; ATTEND Family Medicine
DX: N17.9 Acute kidney failure, unspecified (principal); I63.9 Cerebral infarction, unspecified; N39.0 Urinary tract infection, site not specified; I16.1 Hypertensive emergency; E87.1 Hypo-osmolality and hyponatremia; I13.11 Hypertensive heart and chronic kidney disease without heart failure, with stage 5 chronic kidney disease, or end stage renal disease; E87.6 Hypokalemia; D69.6 Thrombocytopenia, unspecified; R79.89 Other specified abnormal findings of blood chemistry; F17.200 Nicotine dependence, unspecified, uncomplicated; G43.909 Migraine, unspecified, not intractable, without status migrainosus; I73.9 Peripheral vascular disease, unspecified; F12.10 Cannabis abuse, uncomplicated; R80.9 Proteinuria, unspecified; D64.9 Anemia, unspecified; E78.5 Hyperlipidemia, unspecified; N18.5 Chronic kidney disease, stage 5; F32.9 Major depressive disorder, single episode, unspecified; F41.1 Generalized anxiety disorder; H54.7 Unspecified visual loss; Z79.899 Other long term (current) drug therapy; Z91.19 Patient's noncompliance with other medical treatment and regimen; Z91.14 Patient's other noncompliance with medication regimen; Z86.73 Personal history of transient ischemic attack (TIA), and cerebral infarction without residual deficits
CPT/HCPCS: 36415; 70450; 70544; 70551; 71046; 76770; 80048; 80053; 80061; 80074; 80305; 81001; 82575; 82948; 83036; 83735; 84100; 84132; 84145; 84156; 84166; 84484; 84550; 85025; 85027; 85610; 85730; 86038; 86160; 86215; 86235; 86255; 86325; 86334; 86611; 86622; 86638; 86701; 87040; 87088; 87390; 92610; 93005; 93306; 93880; 99291; G0378; J0360; J0696; J1644; J1956; J2060; J2405; J3411; J3480; J3490; J7030; Q0162

== ENCOUNTER 2022-08-18 13:34 | Emergency (ER) | payer MEDICAID ==
[~2022-08-18] VITALS: Ht 157.5 cm; Wt 64.0 kg
[~2022-08-18 13:34] MED LIST: AEC81 PO; AMLO5TAB4 PO; ATOR20TA65 PO; CLOP75TA32 PO; FLUO20CA36 PO; Folic Acid/Vitamin B Comp W-C PO; HYDR-3421 PO; HYDR25 PO; LABE200T7 PO
[2022-08-18] MEDS ORDERED: PHENYLEPHRINE HCL 0.5% 15 ML NASAL SPRAY NASAL ONE (14:11)
[2022-08-18] MEDS ORDERED: NEOMY SULF/BACITRA/POLYMYXIN B 1 EACH PACKET TP ONE (14:19)
[2022-08-18 14:44] LABS: BASOPHILS % (AUTO) 0.6 % (0.0-5.0); EOSINOPHILS % (AUTO) 1.4 % (0.0-8.0); HEMATOCRIT 37.4 % (36-48); MEAN CORPUSCULAR HEMOGLOBIN 32.3 pg (27.0-33.0); MEAN CORPUSCULAR HGB CONC 31.8 g/dL (32.0-36.0); MEAN CORPUSCULAR VOLUME 101.6 fL (79-99); MONOCYTES % (AUTO) 4.7 % (3.0-13.0); NEUTROPHILS % (AUTO) 81.9 % (40.0-77.0); PLATELET COUNT (AUTO) 112 K/uL (130-400); RED BLOOD CELL COUNT(AUTO) 3.68 MIL/uL (4.00-5.50); RED CELL DISTRIBUTION WIDTH 13.4 % (11.0-15.5); WHITE BLOOD COUNT (AUTO) 12.2 K/uL (4.8-10.8)
[2022-08-18 14:56] LABS: CREATININE 1.5 mg/dL (0.5-1.5); POTASSIUM 4.3 mmol/L (3.5-5.1)
[2022-08-18 15:01] LABS: ALBUMIN 3.4 g/dL (3.5-5.0); TOTAL PROTEIN, SERUM 6.8 g/dL (6.0-8.3)
[2022-08-18 15:30] VITALS: BP 154/98
== END 2022-08-18 15:50 | disposition home or self-care (01) ==
LOC: EDH 13:34
DX: R04.0 Epistaxis (principal); I10 Essential (primary) hypertension; Z90.49 Acquired absence of other specified parts of digestive tract; Z98.890 Other specified postprocedural states; Z79.899 Other long term (current) drug therapy; Z79.82 Long term (current) use of aspirin
CPT/HCPCS: 30901; 36415; 80053; 85025

== ENCOUNTER → 2022-11-19 | Outpatient (CLI) | payer MEDICAID | END | disposition home or self-care (01) | LOC: RAH 12:12 | PROVIDERS: ATTEND Psychiatry & Neurology Vascular Neurology | DX: I35.1 Nonrheumatic aortic (valve) insufficiency (principal); I11.9 Hypertensive heart disease without heart failure; Z86.73 Personal history of transient ischemic attack (TIA), and cerebral infarction without residual deficits | CPT/HCPCS: 93306; 96374 ==

== ENCOUNTER → 2022-12-15 | Outpatient (CLI) | payer MEDICAID | END | disposition home or self-care (01) | LOC: RAH 12:32 | PROVIDERS: ATTEND Psychiatry & Neurology Vascular Neurology | DX: G93.89 Other specified disorders of brain (principal); R41.3 Other amnesia; Z86.73 Personal history of transient ischemic attack (TIA), and cerebral infarction without residual deficits | CPT/HCPCS: 70551 ==

== ENCOUNTER 2023-01-27 19:59 | Emergency (ER) | payer MEDICAID ==
[~2023-01-27] VITALS: Ht 157.5 cm; Wt 63.0 kg
[2023-01-27 21:05] VITALS: BP 144/90
[2023-01-27 22:40] LABS: BASOPHILS % (AUTO) 0.7 % (0.0-5.0); EOSINOPHILS % (AUTO) 2.2 % (0.0-8.0); HEMATOCRIT 38.6 % (36-48); LYMPHOCYTES % (AUTO) 22.9 % (21.0-51.0); MEAN CORPUSCULAR HEMOGLOBIN 32.1 pg (27.0-33.0); MEAN CORPUSCULAR HGB CONC 32.6 g/dL (32.0-36.0); MEAN CORPUSCULAR VOLUME 98.2 fL (79-99); NEUTROPHILS % (AUTO) 67.9 % (40.0-77.0); PLATELET COUNT (AUTO) 180 K/uL (130-400); RED BLOOD CELL COUNT(AUTO) 3.93 MIL/uL (4.00-5.50); RED CELL DISTRIBUTION WIDTH 13.8 % (11.0-15.5); WHITE BLOOD COUNT (AUTO) 9.5 K/uL (4.8-10.8)
[2023-01-27 22:48] LABS: CREATININE 1.5 mg/dL (0.5-1.5); POTASSIUM 3.7 mmol/L (3.5-5.1)
[2023-01-27 22:53] LABS: ALBUMIN 3.7 g/dL (3.5-5.0); TOTAL PROTEIN, SERUM 6.9 g/dL (6.0-8.3)
== END 2023-01-27 23:38 | disposition home or self-care (01) ==
LOC: EDH 19:59
DX: M79.605 Pain in left leg (principal); I10 Essential (primary) hypertension; F17.200 Nicotine dependence, unspecified, uncomplicated; Z79.82 Long term (current) use of aspirin; Z79.899 Other long term (current) drug therapy; Z86.73 Personal history of transient ischemic attack (TIA), and cerebral infarction without residual deficits; Z90.49 Acquired absence of other specified parts of digestive tract; Z90.710 Acquired absence of both cervix and uterus
CPT/HCPCS: 36415; 80053; 84484; 85025; 93005; 93971